=== PATIENT | male | born 2000 | race Caucasian/White ===

== ENCOUNTER 2024-06-28 13:43 | Emergency (ER) | payer BC ==
[~2024-06-28] VITALS: Ht 180.3 cm; Wt 100.0 kg
[2024-06-28 14:08] VITALS: O2SAT 98
[2024-06-28 14:10] VITALS: TEMP 37.1; O2SAT 98
[2024-06-28 16:45] VITALS: BP 113/60; PULSE 78; RESP 18
[2024-06-28] MEDS: IBUPROFEN 400MG TABLET PO ONE (16:45)
[2024-06-28] MEDS: METHOCARBAMOL 750MG TABLET PO SCH (16:45)
[2024-06-28] MEDS ORDERED: LIDO700A15 TP (17:13)
[2024-06-28] MEDS ORDERED: IBUP-2028 MT (17:13)
[2024-06-28] MEDS ORDERED: METH-653 MT (17:13)
== END 2024-06-28 17:41 | disposition home or self-care (01) ==
LOC: ER 13:43
DX: T14.8XXA Other injury of unspecified body region, initial encounter (principal); Z87.891 Personal history of nicotine dependence; Z79.899 Other long term (current) drug therapy; V89.2XXA Person injured in unspecified motor-vehicle accident, traffic, initial encounter; Y93.89 Activity, other specified; Y92.89 Other specified places as the place of occurrence of the external cause; Y99.8 Other external cause status
CPT/HCPCS: 71045; 72100; 99284